=== PATIENT | male | born 1935 | race Caucasian/White ===

== ENCOUNTER 2016-03-04 09:39 | Emergency (ER) | payer MEDICARE ==
[2016-03-04] MEDS ORDERED: Albuterol Sulfate 2.5 mg/3 ml Neb ONE (09:46)
[2016-03-04] MEDS ORDERED: Nitroglycerin 2% Ointment 1 INCH/1 GM Packet ONE (09:53)
[2016-03-04] MEDS ORDERED: methylPREDNISolone Sod Succ/PF 125 MG/2 ML VIAL ONE (10:01)
[2016-03-04 10:12] LABS: #Basophils 0.1 thou/uL (0.0-0.2); #Eosinphils 0.3 thou/uL (0.0-0.7); #Lymphocytes 1.8 thou/uL (1.20-3.40); #Monocytes 0.7 thou/uL (0.11-0.59); #Neutrophils 3.6 thou/uL (1.40-6.50); %Basophils 1.1 % (0.0-1.0); %Eosinophils 4.8 % (0.0-10.0); %Monocytes 10.5 % (0.0-10.0); Hematocrit 47.7 % (42.0-52.0); Mean Platelet Volume 6.4 fL (7.4-10.4); Red Blood Cell (RBC) Count 5.26 mill/uL (4.70-6.10); White Blood Cell (WBC) Count 6.5 thou/uL (4.8-10.8)
[2016-03-04] MEDS ORDERED: Enoxaparin Sodium 100 MG/ML SYRINGE ONE (10:20)
[2016-03-04 10:24] LABS: ALT (SGPT) 29 U/L (0-55); AST (SGOT) 23 U/L (5-34); Alkaline Phosphatase 51 U/L (40-150); Anion Gap 12 mmol/L (10-20); BUN (Urea Nitrogen) 15 mg/dL (8.4-25.7); Bilirubin, Total 0.8 mg/dL (0.2-1.2); Calc. Creatinine Clearance 0 mL/min (70-130); Calcium 9.4 mg/dL (7.8-10.44); Carbon Dioxide 23 mmol/L (23-31); Chloride 111 mmol/L (98-107); Estimated GFR-MDRD 86; Globulin 2.7 g/dL (2.4-3.5); Protein, Total 6.8 g/dL (5.8-8.1)
[2016-03-04 10:26] LABS: Troponin I 0.049 ng/mL (< 0.028)
--- NOTE | 2016-03-04 11:29 | PICIS ---
[facility] EMERGENCY RECORD COMMUNICATIONS (10:54 JPIP) COMMUNICATIONS: Physician, contacted/paged at [phone], Reason for notification transfer, Dr Lyman accepts. TRIAGE (FriMar 04, 2016 09:44 SFER) TRIAGE NOTES: patient presents with shortness of breath and difficulty breathing that started last night. has taken a few breathing treatments but last one was last night. (FriMar 04, 2016 09:44 SFER) PATIENT: NAME: Irineo Mayberry, AGE: 80, GENDER: male, : Fri1935, TIME OF GREET: FriMar 04, 2016 09:39, PREFERRED LANGUAGE: Romansh, ETHNICITY: Not or , ECODE BILLING MAP: [facility], SSN: [id number], Zip Code: [address], KG WEIGHT: 77.11, PHONE: , , , PERSON ID: [id number], PAYMENT: X Medicare. (FriMar 04, 2016 09:44 SFER) COMPLAINT: Shortness of Breath. (FriMar 04, 2016 09:44 SFER) ADMISSION: URGENCY: 2 Emergent, ADMISSION SOURCE: Home, TRANSPORT: CAR, BED: ER -01. (FriMar 04, 2016 09:44 SFER) TRIAGE SCREENING: Patient denies suicidal ideation, Patient denies presence of domestic violence. (09:53 SFER) TREATMENTS IN PROGRESS: Treatments given Prehospital: home meds. (09:53 SFER) PROVIDERS: TRIAGE NURSE: Linda Iraheta RN. (FriMar 04, 2016 09:44 SFER) PREVIOUS VISIT ALLERGIES: No Known Drug Allergy, No Known Food Allergy, No Known Latex Allergy. (FriMar 04, 2016 09:44 SFER) No Known Drug Allergy, No Known Food Allergy, No Known Latex Allergy. (09:53 SFER) KNOWN ALLERGIES adhesive (Unconfirmed) No Known Drug Allergies No Known Drug Allergy (Unconfirmed) No Known Food Allergy (Unconfirmed) No Known Latex Allergy (Unconfirmed) CURRENT MEDICATIONS isosorbide mononitrate: TABLET, EXTENDED RELEASE 24 HR : Strength - 30 mg : ORAL Patient Dose: 30 mg Oral once a day. (10:44 SFER) : TABLET : Strength - 27 mg iron-1 mg : ORAL Patient Dose: 40 mg Oral once a day. (10:45 SFER) Ventolin HFA: HFA AEROSOL WITH ADAPTER (GRAM) : Strength - 90 mcg : INHALATION Patient Dose: 1 puff(s) Oral As Needed. (10:46 SFER) ipratropium bromide: AEROSOL, SPRAY (ML) : Strength - 21 mcg : NASAL Patient Dose: 21 mcg Oral 4 times a day. (10:46 SFER) &a-1R&a+25V*p+0X*x0073E*c202B*c15G*c2P*p-0X&a-25V&a+1R Name: Irineo Mayberry : 1935 M80 MedRec: [id number] AcctNum: [id number] Prepared: FriMar 04, 2016 11:24 by Interface Page 1 of 14 pMD [facility] EMERGENCY RECORD VITAL SIGNS VITAL SIGNS: BP: 201/110, Pulse: 87, Resp: 26 (Mild Distress), Pain: 5, O2 sat: 93 on Room Air, Time: 03/04/2016 09:50. (09:50 SFER) O2 sat: 96 on 2L Oxygen, Time: 03/04/2016 09:54. (09:54 SFER) Temp: 97.7 (Oral), Time: 03/04/2016 09:55. (09:55 SFER) BP: 147/107, Pulse: 91, Resp: 19, O2 sat: 98 on 2L Oxygen, Time: 03/04/2016 09:55. (09:55 AHOO) BP: 140/85, Pulse: 70, Resp: 19, O2 sat: 97 on 2L Oxygen, Time: 03/04/2016 09:57. (09:57 AHOO) BP: 130/97, Pulse: 81, Resp: 18, O2 sat: 97 on 2L Oxygen, Time: 03/04/2016 10:00. (10:00 AHOO) BP: 109/68, Pulse: 80, Resp: 15, Pain: 0, O2 sat: 96 on 2L Oxygen, Time: 03/04/2016 10:10. (10:10 AHOO) BP: 129/64, Pulse: 72, Resp: 19, Temp: 98.1 (Oral), Pain: 0, O2 sat: 92 on 2L Oxygen, Time: 03/04/2016 11:13. (11:13 HASA) BP: 136/69, Pulse: 72, Resp: 16, O2 sat: 93 on 2L Oxygen, Time: 03/04/2016 11:00. (11:00 HASA) BP: 127/78, Pulse: 69, Resp: 16, O2 sat: 92 on 2L Oxygen, Time: 03/04/2016 10:50. (10:50 HASA) BP: 125/76, Pulse: 70, O2 sat: 95 on 2L Oxygen, Time: 03/04/2016 10:40. (10:40 HASA) BP: 126/70, Pulse: 57, Resp: 19, O2 sat: 93 on 2L Oxygen, Time: 03/04/2016 10:30. (10:30 HASA) BP: 135/77, Pulse: 77, Resp: 14, O2 sat: 96 on 2L Oxygen, Time: 03/04/2016 10:15. (10:15 HASA) NURSING ASSESSMENT: CARDIOVASCULAR (10:03 ER) CONSTITUTIONAL: Patient arrives ambulatory, Gait steady, History obtained from patient, Patient appears, in respiratory distress, Patient cooperative, Patient alert, Oriented to person, place and time, Skin warm, Skin dry, Skin, flushed in color, Mucous membranes pink, Mucous membranes, dry, Patient complains of shortness of breath, patient presents with shortness of breath that started a few days ago and has progressively gotten worse since last night, patient states he is becoming more short of breath with simple tasks such as feeding horses. patient ambulatory to stretcher at time of arrival. CARDIOVASCULAR: Cardiovascular assessment findings include heart rate normal, Heart rhythm, atrial fibrillation with controlled ventricular response, with Infrequent premature ventricular contractions, Heart sounds normal, Left radial pulse +3(easily palpated, considered normal), Right radial pulse +3(easily palpated, considered normal), No associated diaphoresis, Associated with dyspnea, with exertion, no associated dizziness, no associated edema, no associated palpitations, no associated paresthesias. RESPIRATORY/CHEST: Lungs auscultated, Breath sounds diminished, to bilateral upper lobes, to the &a-1R&a+25V*p+0X*u4394T*c202B*c15G*c2P*p-0X&a-25V&a+1R Name: Irineo Mayberry : 1935 M80 MedRec: [id number] AcctNum: [id number] Prepared: FriMar 04, 2016 11:24 by Interface Page 2 of 14 pMD [facility] EMERGENCY RECORD right middle lobe, to bilateral lower lobes, Respiratory assessment findings include respiratory effort, tachypneic, dyspneic, Converses, in short phrases, Neck and chest exam findings include trachea midline, Chest expansion equal, Chest movement symmetrical, Signs of distress, in mild distress, no retractions noted, Associated with cough, loose, productive of, clear sputum. SAFETY: Side rails up, Cart/Stretcher in lowest position, Family at bedside, Call light within reach, Hospital ID band on. NURSING ASSESSMENT: FALL RISK (10:06 SFER) FALL RISK: Fall risk assessment findings include: no history of falls (0), No bed rest greater than 2 days (0), No use of level of consciousness altering agents with mentation or cognitive changes (0), No change in blood pressure (0), No sensory deficits (0), Impaired mobility (3), No neurologic diagnosis (0), No elimination problems (0), No confusion (0), Total score 3. HENDRICH II FALL RISK: Hendrich II Fall Risk assessment findings include patient not confused, disoriented or impulsive, not symptomatic or depressed, no altered elimination, dizziness or vertigo(1), male(1), no antiepileptics (anticonvulsants) administered, no Benzodiazepines administered, Total score 2, Score greater than 5. Patient is at high risk for fall. Fall risk precautions initiated. 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 SAFETY: Side rails up, Cart/Stretcher in lowest position, Family at bedside, Call light within reach, Hospital ID band on. NURSING PROCEDURE: BEDSIDE RADIOLOGY (10:03 SFER) BEDSIDE RADIOLOGY: Portable chest x-ray performed. SAFETY: Side rails up, Cart/Stretcher in lowest position, Family at bedside, Call light within reach, Hospital ID band on. NURSING PROCEDURE: BEDSIDE SIRS TESTING (10:16 SFER) SCORES: Heart Rate 55-109 (0), Temp range 96.8-101.1 (0), respiratory rate 12-24 (0), Latest WBC 3-14.9 (0), Mental Status altered: no (0). NURSING PROCEDURE: LUMP MAKER (09:45 SFER) &a-1R&a+25V*p+0X*q8448B*c202B*c15G*c2P*p-0X&a-25V&a+1R Name: Irineo Mayberry : 1935 M80 MedRec: [id number] AcctNum: [id number] Prepared: FriMar 04, 2016 11:24 by Interface Page 3 of 14 [facility] EMERGENCY RECORD LUMP MAKER: Patient placed on kitchen stewardess, Patient placed on non-invasive blood pressure monitor, Patient placed on continuous pulse oximetry. SAFETY: Side rails up, Cart/Stretcher in lowest position, Family at bedside, Call light within reach, Hospital ID band on. NURSING PROCEDURE: EKG CHART EK lead EKG performed on the left chest, done by MICHELINE Mckeon, first EKG. (09:46 SFER) 12 lead EKG performed on the left chest, done by MICHELINE Mckeon, first EKG. (10:09 SFER) SAFETY: Side rails up, Cart/Stretcher in lowest position, Family at bedside, Call light within reach, Hospital ID band on. (09:46 SFER) Side rails up, Cart/Stretcher in lowest position, Family at bedside, Call light within reach, Hospital ID band on. (10:09 SFER) NURSING PROCEDURE: IV (09:50 SFER) IV SITE 1: IV established, to the right antecubital, using an 18 gauge catheter, in one attempt, Flushed with normal saline (mls): 10 mL, Labs drawn at time of placement, labeled in the presence of the patient and sent to lab, Notes: started by MICHELINE Carrasco. SAFETY: Side rails up, Cart/Stretcher in lowest position, Family at bedside, Call light within reach, Hospital ID band on. NURSING PROCEDURE: OXYGEN THERAPY (09:46 SFER) OXYGEN THERAPY: Oxygen therapy indicated for desaturation, 2L oxygen given, via nasal cannula applied, Applied by MICHELINE Carrasco, via nasal cannula. FOLLOW-UP: After procedure, oxygen saturation 96%. SAFETY: Side rails up, Cart/Stretcher in lowest position, Family at bedside, Call light within reach, Hospital ID band on. NURSING PROCEDURE: RESPIRATORY INTERVENTIONS (09:48 AHOO) PATIENT IDENTIFIER: Patient actively involved in identification process, Patient's identity verified by patient stating name, Patient's identity verified by patient stating date, Patient's identity verified by hospital ID bracelet, Patient's identity verified by family member. RESPIRATORY INTERVENTIONS: Respiratory interventions indicated for wheezing, Pre-intervention oxygen saturation 93%, by adult/pediatric oxisensor, single pulse oximetry reading. ORDER DETAILS Order Name: B type Natriuretic Peptide, Status: Active, Time: 09:52 03/04/2016, User: MIKEL, - Ordered for: DO Bocanegra Joseph, - Entered by: DO Bocanegra Joseph - [facility] Mar 04, 2016 09:52, - Quantity: 1, &a-1R&a+25V*p+0X*j6554F*c202B*c15G*c2P*p-0X&a-25V&a+1R Name: Irineo Mayberry : 1935 M80 MedRec: [id number] AcctNum: [id number] Prepared: FriMar 04, 2016 11:24 by Interface Page 4 of 14 D [facility] EMERGENCY RECORD Order Name: LUMP MAKER ED, Status: Done, Time: 09:54 03/04/2016, User: LARRY, - Ordered for: DO Bocanegra Joseph, - Entered by: DO Bocanegra Joseph - [facility] Mar 04, 2016 09:52, - Quantity: 1, Order Name: Cardiac Profile w/CKMB & Troponin - I, Status: Active, Time: 09:52 03/04/2016, User: MIKEL, - Ordered for: DO Bocanegra Joseph, - Entered by: DO Bocanegra Joseph - Mon Mar 04, 2016 09:52, - Quantity: 1, Order Name: CBC with Differential, Status: Active, Time: 09:52 03/04/2016, User: MIKEL, - Ordered for: DO Bocanegra Joseph, - Entered by: DO Bocanegra Joseph - Mon Mar 04, 2016 09:52, - Quantity: 1, Order Name: Comprehensive Metabolic Panel, Status: Active, Time: 09:52 03/04/2016, User: MIKEL, - Ordered for: DO Bocanegra Joseph, - Entered by: DO Bocanegra Joseph - FriMar 04, 2016 09:52, - Quantity: 1, Order Name: EKG 12 Lead in Emergency Room, Status: Active, Time: 10:07 03/04/2016, User: MIKEL, - Ordered for: DO Bocanegra Joseph, - Entered by: DO Bocanegra Joseph - Mon Mar 04, 2016 10:07, - Quantity: 1, Order Name: EKG 12 Lead in Emergency Room, Status: Active, Time: 09:52 03/04/2016, User: MIKEL, - Ordered for: DO Bocanegra Joseph, - Entered by: DO Bocanegra Joseph - FriMar 04, 2016 09:52, - Quantity: 1, Order Name: ERRT * Smal Vol Neb Initial Trmt, Status: Active, Time: 10:07 03/04/2016, User: MIKEL, - Ordered for: DO Bocanegra Joseph, - Entered by: DO Bocanegra Joseph - FriMar 04, 2016 10:07, - Quantity: 1, Order Name: ERRT Small Vol Neb Sub Trmt, Status: Active, Time: 10:07 03/04/2016, User: MIKEL, - Ordered for: DO Bocanegra Joseph, - Entered by: DO Bocanegra Joseph - Mon Mar 04, 2016 10:07, - Quantity: 1, Order Name: ERRT Oxygen Usage ER, Status: Active, Time: 09:52 03/04/2016, User: MIKEL, - Ordered for: DO Bocanegra Joseph, - Entered by: DO Bocanegra Joseph - Mon Mar 04, 2016 09:52, - Quantity: 1, Order Name: ERRT Pulse Oximeter ER, Status: Active, Time: 09:52 03/04/2016, User: MIKEL, - Ordered for: DO Bocanegra Joseph, - Entered by: DO Bocanegra Joseph - FriMar 04, 2016 09:52, - Quantity: 1, &a-1R&a+25V*p+0X*q0638H*c202B*c15G*c2P*p-0X&a-25V&a+1R Name: Irineo Mayberry : 1935 M80 MedRec: [id number] AcctNum: [id number] Prepared: FriMar 04, 2016 11:24 by Interface Page 5 of 14 pMD [facility] EMERGENCY RECORD Order Name: SALINE LOCK, Status: Done, Time: 09:54 03/04/2016, User: LARRY, - Ordered for: DO Bocanegra Joseph, - Entered by: DO Bocanegra Joseph - FriMar 04, 2016 09:52, - Quantity: 1, Order Name: XR Chest 1 View Portable, Status: Active, Time: 09:52 03/04/2016, User: MIKEL, - Ordered for: DO Bocanegra Joseph, - Entered by: DO Bocanegra Joseph - FriMar 04, 2016 09:52, - Quantity: 1. MEDICATION ADMINISTRATION SUMMARY Drug Name: Lovenox, Dose Ordered: 80 mg, Route: Subcutaneous, Status: Given, Time: 10:23 03/04/2016, Drug Name: Solu-MEDROL injection, Dose Ordered: 125 mg, Route: IV Push, Status: Given, Time: 10:05 03/04/2016, Drug Name: Nitro-Bid transdermal, Dose Ordered: 1 inch, Route: Topical, Status: Given, Time: 09:55 03/04/2016, Drug Name: albuterol sulfate inhalation, Dose Ordered: 3 mL, Route: Nebulize, Status: Given, Time: 09:53 03/04/2016, Drug Name: *aspirin oral, Dose Ordered: 324 mg, Route: Oral, Status: Given, Time: 09:52 03/04/2016, Drug Name: DuoNeb, Dose Ordered: 3 mL, Route: Nebulize, Status: Given, Time: 09:48 03/04/2016, *Additional information available in notes, Detailed record available in Medication Service section. MEDICATION SERVICE albuterol sulfate inhalation: Order: albuterol sulfate inhalation (albuterol sulfate) - Dose: 3 mL : Nebulize Schedule: Now Ordered by: Isidoro Bocanegra DO Entered by: Isidoro Bocanerga DO FriMar 04, 2016 09:53 , Acknowledged by: Ginger Peters LVN FriMar 04, 2016 10:00 Documented as given by: Ginger Peters LVN FriMar 04, 2016 09:53 Patient, Medication, Dose, Route and Time verified prior to administration. Amount given: 3ml, Correct patient, time, route, dose and medication confirmed prior to administration, Patient advised of actions and side-effects prior to administration, Allergies confirmed and medications reviewed prior to administration, Patient in position of comfort, Side rails up, Cart in lowest position, Family at bedside. aspirin oral: Order: aspirin oral (aspirin) - Dose: 324 mg : Oral Notes: 4 X 81mg TABLETS AT ONCE Ordered by: Isidoro Bocanegra DO Entered by: Isidoro Bocanegra DO FriMar 04, 2016 09:53 , Acknowledged by: Ginger Peters LVN FriMar 04, 2016 10:00 Documented as given by: Ginger Peters LVN FriMar 04, 2016 09:52 Patient, Medication, Dose, Route and Time verified prior to &a-1R&a+25V*p+0X*u0551J*c202B*c15G*c2P*p-0X&a-25V&a+1R Name: Irineo Mayberry : 1935 M80 MedRec: [id number] AcctNum: [id number] Prepared: FriMar 04, 2016 11:24 by Interface Page 6 of 14 pMD [facility] EMERGENCY RECORD administration. Amount given: 324mg, Correct patient, time, route, dose and medication confirmed prior to administration, Patient advised of actions and side-effects prior to administration, Allergies confirmed and medications reviewed prior to administration, Patient in position of comfort, Side rails up, Cart in lowest position, Family at bedside. DuoNeb: Order: DuoNeb (ipratropium bromide/albuterol sulfate) - Dose: 3 mL : Nebulize Schedule: Now Ordered by: Isidoro Bocanegra DO Entered by: Isidoro Bocanegra DO FriMar 04, 2016 09:53 , Acknowledged by: Ginger Peters LVN FriMar 04, 2016 10:00 Documented as given by: Ginger Peters LVN FriMar 04, 2016 09:48 Patient, Medication, Dose, Route and Time verified prior to administration. Amount given: 30ml, Correct patient, time, route, dose and medication confirmed prior to administration, Patient advised of actions and side-effects prior to administration, Allergies confirmed and medications reviewed prior to administration, Patient in position of comfort, Side rails up, Cart in lowest position, Family at bedside. Lovenox: Order: Lovenox (enoxaparin sodium) - Dose: 80 mg : Subcutaneous Schedule: Now Ordered by: Isidoro Bocanegra DO Entered by: Isidoro Bocanegra DO FriMar 04, 2016 10:19 , Acknowledged by: Ginger Peters LVN FriMar 04, 2016 10:20, Co-signed by: Linda Iraheta RN FriMar 04, 2016 10:22 Documented as given by: Ginger Peters LVN FriMar 04, 2016 10:23 Patient, Medication, Dose, Route and Time verified prior to administration. Amount given: 80MG, Medication administered to right abdomen, Advised not to ambulate without assistance, Patient in position of comfort, Side rails up, Cart in lowest position, Family at bedside. Nitro-Bid transdermal: Order: Nitro-Bid transdermal (nitroglycerin) - Dose: 1 inch : Topical Schedule: Now Ordered by: Isidoro Bocanegra DO Entered by: Isidoro Bocanegra DO FriMar 04, 2016 09:53 , Acknowledged by: Ginger Peters LVN FriMar 04, 2016 10:00 Documented as given by: Ginger Peters LVN FriMar 04, 2016 09:55 Patient, Medication, Dose, Route and Time verified prior to administration. Amount given: 1 inch, Skin cleansed prior to administration, Correct patient, time, route, dose and medication confirmed prior to administration, Patient advised of actions and side-effects prior to administration, Allergies confirmed and medications reviewed prior to administration, Advised not to ambulate without assistance, Patient in position of comfort, Side rails up, Cart in lowest position, &a-1R&a+25V*p+0X*d0371H*c202B*c15G*c2P*p-0X&a-25V&a+1R Name: Irineo Mayberry : 1935 M80 MedRec: [id number] AcctNum: [id number] Prepared: FriMar 04, 2016 11:24 by Interface Page 7 of 14 pMD [facility] EMERGENCY RECORD Family at bedside, PT BP WAS 147/107. Solu-MEDROL injection: Order: Solu-MEDROL injection (methylprednisolone sod succ) - Dose: 125 mg : IV Push Ordered by: Isidoro Bocanegra DO Entered by: Isidoro Bocanegra DO FriMar 04, 2016 09:55 , Acknowledged by: Ginger Peters LVN FriMar 04, 2016 10:00 Documented as given by: Ginger Peters LVN FriMar 04, 2016 10:05 Patient, Medication, Dose, Route and Time verified prior to administration. Amount given: 125MG, IV SITE #1 IVP, Awake and alert- acceptable, Catheter placement confirmed via flush prior to administration, IV site without signs or symptoms of infiltration during medication administration, No swelling during administration, No drainage during administration, IV flushed after administration, Correct patient, time, route, dose and medication confirmed prior to administration, Patient advised of actions and side-effects prior to administration, Allergies confirmed and medications reviewed prior to administration, Administered by KELL HAMM RN, Patient in position of comfort, Side rails up, Cart in lowest position, Family at bedside. HPI SHORTNESS OF BREATH CHIEF COMPLAINT: Patient presents for evaluation of shortness of breath. (10:01 JPIP) HISTORIAN: History provided by patient, History provided by patient's spouse. (10:01 JPIP) LOCATION: Symptoms are generalized. (10:01 JPIP) QUALITY: Symptoms described as tightness, Symptoms described as wheezing. (10:01 JPIP) SEVERITY: Current severity of pain rated as 5/10. (10:01 JPIP) TIME COURSE: Sudden onset of symptoms, Date and time of onset was 4-5, days ago, Symptoms are worsening, are constant. (10:01 JPIP) ASSOCIATED WITH: No associated chills, Associated with cough, Associated with chest pain, Associated with dyspnea on exertion, No associated fever, No associated nausea, Associated with palpitations, No associated peripheral edema, Associated with pleuritic chest pain, No associated upper respiratory infection, No associated vomiting, Associated with wheezing. (10:01 JPIP) EXACERBATED BY: Patient's condition exacerbated by exercise. (10:01 JPIP) RELIEVED BY: Patient's condition relieved by nothing. (10:01 JPIP) RISK FACTORS: Coronary artery disease risk factors, include known coronary artery disease. (10:01 JPIP) CRITICAL CARE: Time spent providing critical care to patient was 30-74 minutes, 30 minutes. (10:56 JPIP) ROS (10:02 JPIP) CONSTITUTIONAL: Historian reports chills, reports fatigue, reports fever. EYES: Historian denies eye redness. &a-1R&a+25V*p+0X*p1600O*c202B*c15G*c2P*p-0X&a-25V&a+1R Name: Irineo Mayberry : 1935 M80 MedRec: [id number] AcctNum: [id number] Prepared: FriMar 04, 2016 11:24 by Interface Page 8 of 14 pMD [facility] EMERGENCY RECORD ENT: Historian denies dysphagia, denies rhinorrhea, denies sinus pain, denies sore throat. CARDIOVASCULAR: Historian reports chest pain, pleuritic, Historian reports dyspnea on exertion, denies edema, reports exercise intolerance, reports palpitations. RESPIRATORY: Historian reports cough, reports shortness of breath, reports sputum. described as thin, clear, Historian reports wheezing. GI: Historian denies nausea, denies vomiting. GENITOURINARY MALE: Historian denies incontinence. MUSCULOSKELETAL: Negative musculoskeletal review of systems. NEUROLOGIC: Historian denies confusion, reports dizziness, denies lethargy, denies mental status changes. NOTES: All systems reviewed, negative except as described above. PAST MEDICAL HISTORY (09:53 SFER) MEDICAL HISTORY: Notes: COPD and syncopal episodes, Flu vaccine not up to date, Tetanus not up to date, Pneumococcal vaccine not up to date. 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 PSYCHIATRIC HISTORY: No previous psychiatric history, no history of suicidal ideations, No history of suicide attempts, No history of hallucinations, No history of homicidal ideations, No history of violence towards others. SOCIAL HISTORY: Patient denies alcohol use, Patient denies drug use, Patient currently uses tobacco, Smokes cigars, Light tobacco smoker, Patient has smoked for 30 years, Patient smokes ocassionally. PHYSICAL EXAM (10:03 JPIP) CONSTITUTIONAL: Vital Signs Reviewed, Patient afebrile, Pulse normal, Blood pressure, hypertensive, Respiratory rate, increased, Normal pulse oximetry, Patient appears, uncomfortable, Patient alert and oriented to person, place and time, Nursing notes reviewed. HEAD: Head exam included findings of head atraumatic, normocephalic. EYES: Eye exam included findings of, extropion of left lid, Conjunctiva normal, Sclera normal, no periorbital ecchymosis, no periorbital edema, no periorbital erythema. ENT: Pharynx exam normal, Mouth exam normal, mucous membranes moist. NECK: Neck exam included findings of normal range of motion, Trachea midline, no carotid bruits, no jugular venous distention, no cervical adenopathy, no tenderness. RESPIRATORY CHEST: Respiratory exam included findings of, mild respiratory distress, Breath sounds not clear, Wheezing present, diffusely, Rales present, to bilateral upper lobes, to &a-1R&a+25V*p+0X*z6721Q*c202B*c15G*c2P*p-0X&a-25V&a+1R Name: Irineo Mayberry : 1935 M80 MedRec: [id number] AcctNum: [id number] Prepared: FriMar 04, 2016 11:24 by Interface Page 9 of 14 pMD [facility] EMERGENCY RECORD bilateral lower lobes, No rhonchi, Breath sounds not absent, Breath sounds diminished, to bilateral upper lobes, to bilateral lower lobes. CARDIOVASCULAR: Cardiovascular exam included findings of heart rate regular rate and rhythm, Heart sounds normal, no murmurs, no rub. ABDOMEN MALE: Abdominal exam included findings of abdomen nontender, Liver normal, Spleen normal. UPPER EXTREMITY: Upper extremity exam included findings of inspection normal, Range of motion normal. LOWER EXTREMITY: Lower extremity exam included findings of inspection normal, Range of motion normal, no edema. NEURO: [place] coma scale 15, Neuro exam findings include patient oriented to person, place and time, Speech normal, no focal motor deficits. SKIN: Skin exam included findings of skin warm, dry, and normal in color. LYMPHATIC: Lymphatic exam included findings of cervical nodes normal, Submandibular normal. PSYCHIATRIC: Psychiatric exam included findings of patient oriented to person place and time, Affect, anxious. LAB INTERPRETATION (10:52 JPIP) INTERPRETATION: I reviewed the lab results, All labs normal except as noted below, CBC normal, Chemistry abnormal, Chloride elevated, Cardiac enzymes abnormal, CK-MB normal, Troponin elevated, BNP elevated, Liver functions normal. EVENTS TRANSFER: Triage to Emergency Emergency Room -01. (FriMar 04, 2016 09:44 SFER) Removed from Emergency Emergency Room -01. (11:17 HASA) RADIOLOGYINTERPRETATION (10:09 JPIP) CHEST: Films of the chest show, interstitial infiltrate, no pneumothorax, no hemothorax, no pleural effusion, cardiomegaly, chronic obstructive pulmonary disease. DRAG CAR RACER: Preliminary review of x-rays by, ED Physician. EKG INTERPRETATION MONITOR STRIP: creative guru strip interpreted by Emergency Department Physician, Monitor strip shows atrial flutter, with unifocal premature ventricular complexes, with infrequent premature ventricular complexes. (10:11 JPIP) 12 LEAD EKG INTERPRETATION: 12 lead EKG interpreted by Emergency Department Physician at time of study, 12 lead EKG shows, atrial fibrillation with controlled ventricular response, &a-1R&a+25V*p+0X*e6019H*c202B*c15G*c2P*p-0X&a-25V&a+1R Name: Irineo Mayberry : 1935 M80 MedRec: [id number] AcctNum: [id number] Prepared: FriMar 04, 2016 11:24 by Interface Page 10 of 14 pMD [facility] EMERGENCY RECORD Rate (beats per minute): 84, Conduction with, nonspecific intraventricular conduction delay, ST, T waves, Jackson, left, Clinical impression:, dysrhythmia - atrial. (10:11 JPIP) 12 lead EKG interpreted by Emergency Department Physician at time of study, 12 lead EKG shows, atrial fibrillation with controlled ventricular response, Rate (beats per minute): 77, with no ectopics, Conduction with, nonspecific intraventricular conduction delay, ST segments normal, T waves, flattened, Areas affected: inferior leads, Jackson, left, Clinical impression:, dysrhythmia - atrial. (10:12 JPIP) O2SAT INTERPRETATION (10:20 JPIP) O2SAT: Continuous pulse oximetry, Oxygen saturation 93%, on room air, Oxygen saturation interpretation: Low normal, Intervention required: patient observed, Intervention required: Oxygen administration, Intervention required: aerosol treatment. Continuous pulse oximetry, Oxygen saturation 95%, on 2L, via nasal cannula, Oxygen saturation interpretation: Normal, Intervention required: patient observed, Intervention required: Oxygen administration, after nebs and on O2. DOCTOR NOTES RE-EVALUATION: Routine re-evaluation, after administration of bronchodilator nebulizer treatments, The patient's condition has improved, rhonchi have increased, better exchange. patient is in less distess. (09:55 JPIP) Routine re-evaluation, after administration of nitroglycerin, The patient's condition has improved, BP 130/97. (10:07 JPIP) Routine re-evaluation, after administration of bronchodilator nebulizer treatments, Routine re-evaluation, after administration of nitroglycerin, The patient's condition has improved, 109/68, breathing better feels better. (10:17 JPIP) TEXT: Discussed findings with patient and spouse, New onset Afib, and COPD exacerbation. Will transfer to [facility] for further evaluation and treatment. (10:17 JPIP) PROBLEM LIST No recorded problems DIAGNOSIS (10:56 JPIP) FINAL: PRIMARY: COPD WITH ACUTE EXACERBATION, ADDITIONAL: atrial fibrillation - new onset, CHF, RO AMI. DISPOSITION PATIENT: Disposition Type: Transfer, Disposition: Transfer to [facility], Disposition Transport: Ambulance, Condition: Improved. (10:56 JPIP) Patient left the department. (11:17 HASA) &a-1R&a+25V*p+0X*d9807U*c202B*c15G*c2P*p-0X&a-25V&a+1R Name: Irineo Mayberry : 1935 M80 MedRec: [id number] AcctNum: [id number] Prepared: FriMar 04, 2016 11:24 by Interface Page 11 of 14 pMD [facility] EMERGENCY RECORD PRESCRIPTION No recorded prescriptions IMAGING *EKG: Image captured from scanner. (09:55 SFER) MONITOR STRIPS: Image captured from scanner. (10:10 AHOO) EKG #2: Image captured from scanner. (10:34 AHOO) *MEMORANDUM OF TRANSFER: Image captured from scanner. (10:57 SFER) PHYSICIAN CERTIFICATION STATEMENT: Image captured from scanner. (10:57 SFER) CONSENTS: Image captured from scanner. (11:00 SFER) RESULTS LABORATORY: CBC with Differential Collection DT: FriMar 04, 2016 10:10, White Blood Cell (WBC) Count 6.5 thou/uL, Range (4.8-10.8), Red Blood Cell (RBC) Count 5.26 mill/uL, Range (4.70-6.10), Hemoglobin 15.1 g/dL, Range (14.0-18.0), Hematocrit 47.7 %, Range (42.0-52.0), Mean Corpuscular Volume 90.6 fl, Range (80.0-94.0), Mean Corpuscular Hemoglobin 28.6 pg, Range (27.0-31.0), *Mean Corpuscular HGB CONC 31.6 - L g/dL, Range (32.0-36.0), RBC Distribution Width 12.9 %, Range (11.5-14.5), Platelet Count 189 thou/uL, Range (130-400), *Mean Platelet Volume 6.4 - L fL, Range (7.4-10.4), %Neutrophils 55.9 %, Range (42.0-75.0), %Lymphocytes 27.7 %, Range (21.0-51.0), *%Monocytes 10.5 - H %, Range (0.0-10.0), %Eosinophils 4.8 %, Range (0.0-10.0), *%Basophils 1.1 - H %, Range (0.0-1.0), #Neutrophils 3.6 thou/uL, Range (1.40-6.50), #Lymphocytes 1.8 thou/uL, Range (1.20-3.40), *#Monocytes 0.7 - H thou/uL, Range (0.11-0.59), #Eosinphils 0.3 thou/uL, Range (0.0-0.7), #Basophils 0.1 thou/uL, Range (0.0-0.2). (10:16 JPIP) B type Natriuretic Peptide Collection DT: FriMar 04, 2016 10:10, *B type Natriuretic Peptide 306.1 - H pg/mL, Range (0-100). (10:30 JPIP) Cardiac Profile w/CKMB & TropI Collection DT: FriMar 04, 2016 10:10, CKMB 4.8 ng/mL, Range (0-6.6), *Troponin I 0.049 - H ng/mL, Range (< 0.028), Reference Range , 0.00 - 0.028 ng/mL Negative 0.029 - 0.29 ng/mL , Indeterminate Greater or Equal to 0.3 ng/mL Strongly suggests CO , . (10:30 [facility]) Comprehensive Metabolic Panel Collection DT: FriMar 04, 2016 10:10, &a-1R&a+25V*p+0X*e0055N*c202B*c15G*c2P*p-0X&a-25V&a+1R Name: Irineo Mayberry : 1935 M80 MedRec: [id number] AcctNum: [id number] Prepared: FriMar 04, 2016 11:24 by Interface Page 12 of 14 pMD [facility] EMERGENCY RECORD Sodium 142 mmol/L, Range (136-145), Potassium 4.0 mmol/L, Range (3.5-5.1), *Chloride 111 - H mmol/L, Range (98-107), Carbon Dioxide 23 mmol/L, Range (23-31), Anion Gap 12 mmol/L, Range (10-20), BUN (Urea Nitrogen) 15 mg/dL, Range (8.4-25.7), Creatinine 0.85 mg/dL, Range (0.7-1.3), Estimated GFR-MDRD 86 , Reference Range for Estimated GFR: Greater than 90, mL/min/1.73 m2 NOTE: The MDRD equation has not been validated for use, with the elderly (over 70 years of age), women, patients with, serious comorbid condition or persons with extremes of body size, muscle, mass, or nutritional status. , Glucose 109 mg/dL, Range (83-110), Calcium 9.4 mg/dL, Range (7.8-10.44), Bilirubin, Total 0.8 mg/dL, Range (0.2-1.2), Protein, Total 6.8 g/dL, Range (5.8-8.1), NOTE: Plasma values are generally 0.3 to 0.5 g/dL higher than serum values, due to the presence of fibrinogen. , Albumin 4.1 g/dL, Range (3.4-4.8), Globulin 2.7 g/dL, Range (2.4-3.5), Alb/Glob Ratio 1.5 g/dL, Range (1.2-2.2), Alkaline Phosphatase 51 U/L, Range (40-150), AST (SGOT) 23 U/L, Range (5-34), ALT (SGPT) 29 U/L, Range (0-55). (10:30 JPIP) B type Natriuretic Peptide Collection DT: FriMar 04, 2016 10:10, *B type Natriuretic Peptide 306.1 - H pg/mL, Range (0-100). (10:30 JPIP) Cardiac Profile w/CKMB & TropI Collection DT: FriMar 04, 2016 10:10, CKMB 4.8 ng/mL, Range (0-6.6), *Troponin I 0.049 - H ng/mL, Range (< 0.028), Reference Range , 0.00 - 0.028 ng/mL Negative 0.029 - 0.29 ng/mL , Indeterminate Greater or Equal to 0.3 ng/mL Strongly suggests CO , . (10:30 JPIP) Comprehensive Metabolic Panel Collection DT: FriMar 04, 2016 10:10, Sodium 142 mmol/L, Range (136-145), Potassium 4.0 mmol/L, Range (3.5-5.1), *Chloride 111 - H mmol/L, Range (98-107), Carbon Dioxide 23 mmol/L, Range (23-31), Anion Gap 12 mmol/L, Range (10-20), BUN (Urea Nitrogen) 15 mg/dL, Range (8.4-25.7), Creatinine 0.85 mg/dL, Range (0.7-1.3), Estimated GFR-MDRD 86 , Reference Range for Estimated GFR: Greater than 90, mL/min/1.73 m2 &a-1R&a+25V*p+0X*i3122N*c202B*c15G*c2P*p-0X&a-25V&a+1R Name: Irineo Mayberry : 1935 80 MedRec: [id number] AcctNum: [id number] Prepared: FriMar 04, 2016 11:24 by Interface Page 13 of 14 pMD [facility] EMERGENCY RECORD NOTE: The MDRD equation has not been validated for use, with the elderly (over 70 years of age), women, patients with, serious comorbid condition or persons with extremes of body size, muscle, mass, or nutritional status. , Glucose 109 mg/dL, Range (83-110), Calcium 9.4 mg/dL, Range (7.8-10.44), Bilirubin, Total 0.8 mg/dL, Range (0.2-1.2), Protein, Total 6.8 g/dL, Range (5.8-8.1), NOTE: Plasma values are generally 0.3 to 0.5 g/dL higher than serum values, due to the presence of fibrinogen. , Albumin 4.1 g/dL, Range (3.4-4.8), Globulin 2.7 g/dL, Range (2.4-3.5), Alb/Glob Ratio 1.5 g/dL, Range (1.2-2.2), Alkaline Phosphatase 51 U/L, Range (40-150), AST (SGOT) 23 U/L, Range (5-34), ALT (SGPT) 29 U/L, Range (0-55). (10:30 [facility]) Gibbs: AHOO=IVONNE PetersN, June HASA=SERENITY Hamm Hannah JPIP=DO Bocanegra Joseph SFER=MICHELINE Iraheta Sarah &a-1R&a+25V*p+0X*h9540L*c202B*c15G*c2P*p-0X&a-25V&a+1R Name: Irineo Mayberry : 1935 80 MedRec: [id number] AcctNum: [id number] Prepared: Shilo Mar 04, 2016 11:24 by Interface Page 14 of 14 pMD MEL
--- NOTE | 2016-03-04 18:26 | RAD ---
PORTABLE CHEST 03/04/2016 COMPARISON: 10/17/2015 FINDINGS The heart is mildly enlarged, but there are no congestive changes in the vessels at t he moment. No pleural effusions are seen. There is perhaps a little increased haziness in the righ t cardiophrenic angle, compared to before, which may or may not be significant. If there were no si gns of pneumonia, I would tend to dismiss the finding or at least follow it up with a PA and lateral chest. Median sternotomy sutures are noted, as usual, from prior surgery. Arteriosclerosis is see n in the aorta. IMPRESSION Cardiomegaly. POS: HOME
== END 2016-03-04 11:15 | disposition short-term general hospital (02) ==
LOC: BURERS 09:39
DX: J44.1 Chronic obstructive pulmonary disease with (acute) exacerbation (principal); I48.91 Unspecified atrial fibrillation; I50.9 Heart failure, unspecified; F17.210 Nicotine dependence, cigarettes, uncomplicated; Z79.899 Other long term (current) drug therapy
CPT/HCPCS: 71010; 80053; 82553; 83880; 84484; 85025; 93005; 94640; 94760; 96372; 96374; J1650; J2930; J7611; J7620

== ENCOUNTER 2016-03-20 08:41 | Outpatient (CLI) | payer MEDICARE ==
[2016-03-20 09:32] LABS: ALT (SGPT) 21 U/L (0-55); AST (SGOT) 20 U/L (5-34); Alkaline Phosphatase 46 U/L (40-150); Bilirubin, Direct 0.3 mg/dL (0.1-0.3); Bilirubin, Total 0.8 mg/dL (0.2-1.2); LDL Cholesterol, Calculated 62 mg/dL; Protein, Total 6.2 g/dL (5.8-8.1)
== END 2016-03-20 08:42 | disposition home or self-care (01) ==
LOC: BURLAB 08:41
PROVIDERS: ATTEND Internal Medicine Cardiovascular Disease
DX: I48.91 Unspecified atrial fibrillation (principal); Z79.899 Other long term (current) drug therapy
CPT/HCPCS: 36415; 80061; 80076

== ENCOUNTER 2016-04-12 10:16 | Outpatient (CLI) | payer MEDICARE ==
--- NOTE | 2016-04-12 13:31 | RAD ---
CHEST 2 VIEWS: DATE: 04/12/16. FINDINGS: Comparison is made with the prior study of 03/04/16 and 10/17/15. The heart is normal in size. There has been a prior CABG. COPD is present. There is a small left pleural effusion today and there appears to be a left lower lobe infiltrate posteriorly. The findin gs are consistent with a small developing pneumonia. The right lung is relatively clear, though the re is some minor accentuation of some of the hilar markings. The trachea is midline. IMPRESSION: Chronic obstructive pulmonary disease with findings suggestive of an early left basilar pneumonia. Findings called to Dr. Gilbert at 1232 on 04/12/16. CODE CR POS: JONES
== END 2016-04-12 10:17 | disposition home or self-care (01) ==
LOC: BURRAD 10:16
PROVIDERS: ATTEND Physician Assistant
DX: J44.1 Chronic obstructive pulmonary disease with (acute) exacerbation (principal); R06.02 Shortness of breath; R05 Cough
CPT/HCPCS: 71020

== ENCOUNTER 2016-06-14 12:06 | Outpatient (CLI) | payer MEDICARE ==
[2016-06-14 13:35] LABS: ALT (SGPT) 26 U/L (0-55); AST (SGOT) 24 U/L (5-34); Albumin 4.3 g/dL (3.4-4.8); Alkaline Phosphatase 42 U/L (40-150); Anion Gap 14 mmol/L (10-20); BUN (Urea Nitrogen) 17 mg/dL (8.4-25.7); Bilirubin, Direct 0.2 mg/dL (0.1-0.3); Bilirubin, Total 0.5 mg/dL (0.2-1.2); Calc. Creatinine Clearance 0 mL/min (70-130); Calcium 9.7 mg/dL (7.8-10.44); Carbon Dioxide 26 mmol/L (23-31); Chloride 108 mmol/L (98-107); Estimated GFR-MDRD 77; Glucose 88 mg/dL (83-110); Potassium 4.1 mmol/L (3.5-5.1); Protein, Total 6.9 g/dL (5.8-8.1); Sodium 144 mmol/L (136-145)
--- NOTE | 2016-06-14 14:35 | RAD ---
PA AND LATERAL CHEST: Date: 06/14/16 INDICATION: Diagnosis code - 550.22. COMPARISON: Prior exam dated 04/12/16. FINDINGS: The examination demonstrates some improvement in the left basilar opacity seen from the prior examin ation. There is some residual subsegmental atelectasis within the left lower lobe. Mild cardiomegaly is stable. Tortuosity of the aorta is similar. Chronic obstructive pulmonary disease is similar. Mu ltilevel spondylosis is similar. IMPRESSION: 1. Improvement in the air space opacity seen within the left lower lobe on the prior examination. T here is some residual linear opacity seen within the left lower lobe which may reflect some residual atelectasis. Continued follow-up is recommended. 2. Stable COPD. POS: JONES
== END 2016-06-14 12:07 | disposition home or self-care (01) ==
LOC: BURRAD 12:06
PROVIDERS: ATTEND Nurse Practitioner Family
DX: I50.22 Chronic systolic (congestive) heart failure (principal); J44.9 Chronic obstructive pulmonary disease, unspecified; I25.10 Atherosclerotic heart disease of native coronary artery without angina pectoris; E78.00 Pure hypercholesterolemia, unspecified
CPT/HCPCS: 36415; 71020; 80048; 80076

== ENCOUNTER 2016-07-31 10:09 | Outpatient (CLI) | payer MEDICARE ==
[2016-07-31 10:53] LABS: Anion Gap 12 mmol/L (10-20); BUN (Urea Nitrogen) 20 mg/dL (8.4-25.7); Calc. Creatinine Clearance 0 mL/min (70-130); Calcium 9.2 mg/dL (7.8-10.44); Carbon Dioxide 24 mmol/L (23-31); Chloride 110 mmol/L (98-107); Estimated GFR-MDRD 79; Glucose 98 mg/dL (83-110); Potassium 4.3 mmol/L (3.5-5.1); Sodium 142 mmol/L (136-145)
== END 2016-07-31 10:10 | disposition home or self-care (01) ==
LOC: BURLAB 10:09
PROVIDERS: ATTEND Internal Medicine Cardiovascular Disease
DX: I50.20 Unspecified systolic (congestive) heart failure (principal)
CPT/HCPCS: 36415; 80048

== ENCOUNTER 2017-10-29 09:06 | Inpatient (IN) | payer MEDICARE ==
[2017-10-29 09:46] LABS: #Basophils 0.1 thou/uL (0.0-0.2); #Eosinphils 0.2 thou/uL (0.0-0.7); #Lymphocytes 1.6 thou/uL (1.20-3.40); #Monocytes 0.5 thou/uL (0.11-0.59); #Neutrophils 4.9 thou/uL (1.40-6.50); %Basophils 0.8 % (0.0-1.0); %Eosinophils 2.3 % (0.0-10.0); %Lymphocytes 22.6 % (21.0-51.0); %Monocytes 6.9 % (0.0-10.0); %Neutrophils 67.4 % (42.0-75.0); Hemoglobin 13.8 g/dL (14.0-18.0); Mean Corpuscular HGB CONC 35.2 g/dL (32.0-36.0); Mean Corpuscular Hemoglobin 28.7 pg (27.0-31.0); Mean Corpuscular Volume 81.4 fL (78.0-98.0); Mean Platelet Volume 6.3 fL (7.4-10.4); Platelet Count 167 thou/uL (130-400); RBC Distribution Width 12.5 % (11.5-14.5); Red Blood Cell (RBC) Count 4.83 mill/uL (4.70-6.10); White Blood Cell (WBC) Count 7.2 thou/uL (4.8-10.8)
[2017-10-29] MEDS ORDERED: Furosemide 100 MG/10 ML VIAL ONE (09:49)
[2017-10-29 09:55] LABS: ALT (SGPT) 35 U/L (8-55); AST (SGOT) 32 U/L (5-34); Albumin 3.9 g/dL (3.4-4.8); Alkaline Phosphatase 56 U/L (40-150); Anion Gap 17 mmol/L (10-20); BUN (Urea Nitrogen) 17 mg/dL (8.4-25.7); Bilirubin, Total 0.9 mg/dL (0.2-1.2); Calc. Creatinine Clearance 0 mL/min (70-130); Carbon Dioxide 19 mmol/L (23-31); Chloride 110 mmol/L (98-107); Estimated GFR-MDRD Greater than 90; Globulin 2.7 g/dL (2.4-3.5); Glucose 97 mg/dL (83-110); Potassium 4.8 mmol/L (3.5-5.1); Protein, Total 6.6 g/dL (5.8-8.1); Sodium 141 mmol/L (136-145)
[2017-10-29 09:56] LABS: CKMB 3.3 ng/mL (0-6.6); Troponin I 0.029 ng/mL (< 0.028)
[2017-10-29 09:58] LABS: Prothrombin Time 13.7 SEC (12.0-14.7)
[2017-10-29] MEDS ORDERED: methylPREDNISolone Sod Succ/PF 125 MG/2 ML VIAL ONE (10:05)
[2017-10-29 10:07] LABS: PTT 31.5 SEC (22.9-36.1)
[2017-10-29] MEDS ORDERED: Ondansetron ODT 4 MG TAB PO PRN (12:54)
[2017-10-29] MEDS ORDERED: Acetaminophen 325 MG TAB PO PRN (12:54)
[2017-10-29] MEDS ORDERED: Ondansetron HCl/PF 4 MG/2 ML Vial IVP PRN (12:54)
[2017-10-29 15:02] VITALS: BMI 24.3
--- NOTE | 2017-10-29 18:58 | RAD ---
PORTABLE CHEST: 10/29/17 Comparison is made with an 01/14/[address] [facility]. Today's exam at 0858 shows mild cardiomegaly which seems slightly larger than before. The vessels are slightly more prominent than they were previously as well. I cannot exclude some early congestive ch dena. Calcification is seen in the aortic arch. Median sternotomy sutures are present as usual. The lungs a re hyperexpanded with flattening of the diaphragm. There is a little haziness over the right hemidiap hragm medially, but I am not convinced of its significance as of yet. IMPRESSION: Suggestive of mild congestive change. POS: HOME
[2017-10-29] MEDS ORDERED: Meclizine HCl 25 MG TAB PO PRN (19:20)
[2017-10-29] MEDS ORDERED: HYDROcodone/Acetaminophen 10/325 mg Tablet PO PRN (19:20)
[2017-10-29] MEDS ORDERED: Senokot 8.6 MG TAB PO PRN (19:23)
[2017-10-29] MEDS: Apixaban 5 MG TAB PO SCH (20:59)
[2017-10-29] MEDS: Lisinopril 5 MG TAB PO SCH (20:59)
[2017-10-29] MEDS: SYSTANE EYE EA EYE SCH (21:01)
[2017-10-29] MEDS: Promethazine DM 6.25-15mg/5ml 120 ML BOT PO PRN (21:12)
--- NOTE | 2017-10-30 01:03 | HP ---
DATE OF ADMISSION: 10/29/2017 CHIEF COMPLAINT: Shortness of breath. HISTORY OF PRESENT ILLNESS: The patient is an 81-year-old white male with a history of COPD as well as congestive heart failure with chronic atrial fibrillation who reports about 3-4 days prior to pres enting to the emergency room, the patient ran out of his Lasix, usually takes 20 mg to 40 mg daily, d epending upon his symptoms including lower extremity edema and after stopping his Lasix due to ran ou t of the medication, he try to get refills and was unable to. Then became progressively more short o f breath on the morning of admission, he got up out of bed, try to walk to the bathroom, became so sh ort of breath. He could barely walk and thus presented to the emergency room. In the emergency room , patient was evaluated and found to be in with signs of congestive heart failure requiring admission to the hospital. PAST MEDICAL HISTORY: Includes, 1. COPD for greater than 30 years, patient intermittently still smokes. 2. Coronary artery disease with status post coronary artery bypass at age 49. 3. Hypertension. 4. Hyperlipidemia. 5. Atrial fibrillation. 6. Congestive heart failure. PAST SURGICAL HISTORY: Includes coronary artery bypass as above at age 49 as well as left inguinal h ernia repair. Postoperatively, patient had a chronic drainage from the postoperative site, initially had an abscess that required a wound VAC treatment. CURRENT MEDICATIONS: Isosorbide mononitrate 60 mg daily, Ventolin puff 2 puffs q.4 hours p.r.n. for shortness of breath. The patient is also on inhaled steroids twice a day as well as long-acting beta agonist twice a day, Eliquis 5 mg b.i.d., Lipitor patient stopped taking the medication, Tricor reggie y, Lasix as above 20-40 mg daily, lisinopril 2.5 mg daily, aspirin 81 mg daily, [place] 10/325 p.o. q.6 hours. p.r.n. for pain. ALLERGIES: No known drug allergies. FAMILY HISTORY: Mother at age 49 of breast cancer. Father at age 73 of congestive heart f ailure complications. SOCIAL HISTORY: The patient is for multiple years, has been previously . His is a surrogate decision maker: The patient wishes to be DNR status. He has fairly independent in acti vities of daily living. He is oxygen dependent due to his chronic COPD. The patient does report con tinued smoking of Siglo p.r.n. 1-2 a day. He reports social alcohol drinking, but no other significa nt social drug use. REVIEW OF SYSTEMS: The patient denies any headache, no real significant visual changes or sore throa t. No fevers, chills or night sweats. No nausea, vomiting or diarrhea. No recent GI changes. The patient is progressively short of breath as reported in HPI, but no significant chest pain other than the shortness of breath which is exertional character. The patient does report some cough with his increased shortness of breath. The patient denies any dysuria, hematuria or change in urinary freque ncy. No significant low back pain. The patient does report some increased lower extremity edema. H e is unsure if he has had any significant weight gain or weight loss. No rashes noted and patient re ports no significant skin changes. LABORATORY AND X-RAY FINDINGS: Comprehensive metabolic panel showed no significant abnormalities ove r his baseline. CBC was within normal limits. The patient had a chest x-ray which showed congestive changes to the lungs. PHYSICAL EXAMINATION: VITAL SIGNS: Blood pressure is 128/68, respiratory rate was 22, pulse was irregular in the 80s, temp erature 98.2, O2 saturation was 92% on 2 liters. HEENT: Atraumatic, normocephalic. Extraocular movements are intact. Pupils are equal, round, and r eactive to light and accommodation. Oropharynx was dry. NECK: Supple, no masses palpated, no bruits auscultated. CHEST: Decreased breath sounds with prolonged expiration bilaterally. HEART: Irregularly irregular rate and rhythm. ABDOMEN: Soft, nontender, nondistended, no masses were palpated. No tenderness to palpation. The l eft inguinal area had a punctate open wound with minimal drainage. EXTREMITIES: With trace edema of the lower extremities bilaterally. BACK: No CVA, no vertebral tenderness. ASSESSMENT AND PLAN: 1. Congestive heart failure exacerbation due to medication noncompliance. The patient was given 60 of Lasix IV in the emergency room, he has diuresed 4 liters. While repeat chest x-ray and comprehens julissa metabolic panel in the morning, may consider another dose of IV Lasix. Continue him on oxygen. 2. Chronic obstructive pulmonary disease exacerbation. Continue oxygen as above as well as breathin g treatments per routine. He was given a dose of Solu-Medrol, I do not think there is any significan t chronic obstructive pulmonary disease exacerbation that is mainly congestive heart failure. 3. Atrial fibrillation. The patient is on anticoagulant currently his rate is controlled. He is no t on any beta lynnette. 4. Coronary artery disease. The patient did have a borderline troponin just above the range of norm al, but no significant chest pain nor obvious EKG changes. Repeat troponin in the morning, it is nor mal. No further treatment. Again, there are no other signs of significant cardiac ischemia. We gerson l continue him on isosorbide 60 mg daily. DISPOSITION: The patient is a DNR by his request. Hopefully, he will be in the hospital for approxi mately 2-3 days depending upon how well he is diuresed.
[2017-10-30 05:41] LABS: Hemoglobin 12.7 g/dL (14.0-18.0); Mean Corpuscular HGB CONC 35.4 g/dL (32.0-36.0); Mean Corpuscular Hemoglobin 28.8 pg (27.0-31.0); Mean Corpuscular Volume 81.2 fL (78.0-98.0); Platelet Count 141 thou/uL (130-400); RBC Distribution Width 12.3 % (11.5-14.5); Red Blood Cell (RBC) Count 4.42 mill/uL (4.70-6.10); White Blood Cell (WBC) Count 10.6 thou/uL (4.8-10.8)
[2017-10-30 05:47] LABS: ALT (SGPT) 27 U/L (8-55); AST (SGOT) 18 U/L (5-34); Albumin 3.6 g/dL (3.4-4.8); Alkaline Phosphatase 49 U/L (40-150); Anion Gap 13 mmol/L (10-20); BUN (Urea Nitrogen) 19 mg/dL (8.4-25.7); Bilirubin, Total 0.5 mg/dL (0.2-1.2); Calc. Creatinine Clearance 80 mL/min (70-130); Calcium 8.9 mg/dL (7.8-10.44); Carbon Dioxide 25 mmol/L (23-31); Chloride 109 mmol/L (98-107); Estimated GFR-MDRD Greater than 90; Globulin 2.4 g/dL (2.4-3.5); Glucose 120 mg/dL (83-110); Sodium 143 mmol/L (136-145); Troponin I 0.018 ng/mL (< 0.028)
[2017-10-30 05:55] LABS: Lymphocytes 9 % (21-51); MDiff Complete? YES; Monocytes 5 % (0-10); Neutrophil 85 % (42-75); PLT Morphology Comment Appears Adequate; RBC Morphology Normal; Reactive Lymphocytes 1 % (0-10)
[2017-10-30] MEDS: Budesonide 0.5 MG/2 ML NEB NEB SCH ×2 (06:13→18:06)
[2017-10-30] MEDS ORDERED: Potassium Chloride 20 MEQ TAB PO SCH (08:00)
[2017-10-30] MEDS ORDERED: Furosemide 100 MG/10 ML VIAL SLOW IVP SCH (08:00)
[2017-10-30] MEDS: Aspirin 81 mg Enteric Coated Tablet PO SCH (08:18)
[2017-10-30] MEDS: Lisinopril 5 MG TAB PO SCH ×2 (08:20→21:37)
[2017-10-30] MEDS: Apixaban 5 MG TAB PO SCH ×2 (08:20→21:44)
[2017-10-30] MEDS: IRON FUM PO SCH (10:17)
[2017-10-30] MEDS: FOLIC PO SCH (10:17)
[2017-10-30] MEDS: PRENATAL VIT PO SCH (10:17)
[2017-10-30] MEDS: FENOFIBRATE NANOCRYSTALLIZED 48 MG PO SCH (10:17)
[2017-10-30] MEDS: SYSTANE EYE EA EYE SCH ×2 (10:18→21:46)
[2017-10-30] MEDS: PROVENTIL INHALER 6.7 G (200 INHALATIONS) INH PRN (14:28)
--- NOTE | 2017-10-30 17:46 | RAD ---
CHEST TWO VIEWS: 10/30/17 Comparison is made with the 10/29 study. There is less congestion today than yesterday. The heart is mildly enlarged but no more so than befor e. A prior CABG is noted. Some small pleural effusions are present, left more than right. There is fl attening of the diaphragm consistent with COPD. IMPRESSION: CHF improving. POS: HOME
[2017-10-30] MEDS: Promethazine DM 6.25-15mg/5ml 120 ML BOT PO PRN (21:45)
[2017-10-31] MEDS: Budesonide 0.5 MG/2 ML NEB NEB SCH ×2 (05:59→17:50)
[2017-10-31] MEDS: Aspirin 81 mg Enteric Coated Tablet PO SCH (08:59)
[2017-10-31] MEDS: Lisinopril 5 MG TAB PO SCH ×2 (09:00→20:18)
[2017-10-31] MEDS: Apixaban 5 MG TAB PO SCH ×2 (09:00→20:18)
[2017-10-31] MEDS: FENOFIBRATE NANOCRYSTALLIZED 48 MG PO SCH (09:02)
[2017-10-31] MEDS: PRENATAL VIT PO SCH (09:03)
[2017-10-31] MEDS: SYSTANE EYE EA EYE SCH ×2 (09:03→20:19)
[2017-10-31] MEDS: FOLIC PO SCH (09:03)
[2017-10-31] MEDS: IRON FUM PO SCH (09:03)
[2017-10-31] MEDS ORDERED: Furosemide 100 MG/10 ML VIAL SLOW IVP SCH (10:00)
[2017-10-31 10:01] LABS: ALT (SGPT) 29 U/L (8-55); AST (SGOT) 20 U/L (5-34); Alkaline Phosphatase 52 U/L (40-150); Anion Gap 15 mmol/L (10-20); BUN (Urea Nitrogen) 16 mg/dL (8.4-25.7); Bilirubin, Total 0.6 mg/dL (0.2-1.2); Calc. Creatinine Clearance 73 mL/min (70-130); Calcium 9.4 mg/dL (7.8-10.44); Carbon Dioxide 28 mmol/L (23-31); Chloride 104 mmol/L (98-107); Estimated GFR-MDRD Greater than 90; Globulin 2.6 g/dL (2.4-3.5); Glucose 125 mg/dL (83-110); Potassium 3.9 mmol/L (3.5-5.1); Protein, Total 6.6 g/dL (5.8-8.1); Sodium 143 mmol/L (136-145)
[2017-10-31] MEDS ORDERED: Potassium Chloride 10 MEQ TAB PO SCH (19:45)
[2017-11-01] MEDS: Budesonide 0.5 MG/2 ML NEB NEB SCH (07:23)
[2017-11-01] MEDS: Apixaban 5 MG TAB PO SCH (08:59)
[2017-11-01] MEDS ORDERED: Lisinopril 10 MG TAB PO SCH (09:00)
[2017-11-01] MEDS: Aspirin 81 mg Enteric Coated Tablet PO SCH (09:00)
[2017-11-01] MEDS: FENOFIBRATE NANOCRYSTALLIZED 48 MG PO SCH (09:03)
[2017-11-01] MEDS: PRENATAL VIT PO SCH (09:03)
[2017-11-01] MEDS: FOLIC PO SCH (09:03)
[2017-11-01] MEDS: IRON FUM PO SCH (09:03)
[2017-11-01] MEDS: SYSTANE EYE EA EYE SCH (09:03)
[2017-11-01] MEDS ORDERED: Furosemide 100 MG/10 ML VIAL SLOW IVP SCH (09:15)
[2017-11-01] MEDS ORDERED: Potassium Chloride 20 MEQ TAB PO SCH (09:15)
[2017-11-01] MEDS: Promethazine DM 6.25-15mg/5ml 120 ML BOT PO PRN (09:35)
[2017-11-01] MEDS: PROVENTIL INHALER 6.7 G (200 INHALATIONS) INH PRN (11:36)
[2017-11-01 16:58] VITALS: BP 123/61; TEMP 98.5
--- NOTE | 2017-11-04 14:20 | DIS ---
BRIEF SUMMARY OF HISTORY AND PHYSICAL: The patient is an 82-year-old white male with a history of en d-stage COPD as well as a history of coronary artery disease and atrial fibrillation with congestive heart failure who presented to the emergency room on 10/29/2017 after not taking his Lasix for severa l days. He began to have increased shortness of breath and difficulty ambulating in the emergency ro om, he was found to be in congestive heart failure and was admitted to the hospital. BRIEF SUMMARY OF HOSPITAL COURSE: The patient was admitted to the floor, placed on oxygen and given IV Lasix daily. The patient diuresed well and had significant improvement in his respiratory status to the point where he was close to his baseline, especially at rest, but continued to require oxygen, which was at his baseline as well. During his hospital course, he did continue to have some cough a nd on exam continued to have some rhonchi and expiratory wheezes. He was continued on his routine ne bulizers, but started on Levaquin at discharge for possible exacerbation of his chronic bronchitis/CO PD. DISCHARGE MEDICATIONS: The patient will continue all his medications including isosorbide mononitrat e 60 mg daily, Ventolin puffs as needed q.4 hours p.r.n. shortness of breath. He will continue his l janessa-acting beta agonist and inhaled steroid b.i.d. The patient will continue Eliquis 5 mg p.o. b.i.d ., TriCor daily, Lasix 40 mg daily. He will be started on potassium 10 mEq daily, lisinopril 2.5 mg daily, aspirin 81 mg daily, [place] 10/325 p.o. q.6h. p.r.n. pain. The patient was started on Levaquin 750 mg 1/2 tablet p.o. daily for 10 days. The patient was told to continue his oxygen continuously. He will follow up with his primary care ph ysician, Dr. Davian Gilbert within the week as well as his meat stock clerk, Dr. Burton Dunne. Ap parently, the patient has nonoperable end-stage coronary artery disease, but it would be warranted fo r him to follow up with Dr. Dunne before he tries to increase any of his physical activity. Appa rently, the patient had been on hospice in the past, but reverse decision to stay on hospice. His ov erall outlook is pretty grim to poor with his endstage COPD.
--- NOTE | 2017-11-06 13:21 | PQF ---
RENETTA CANDELARIO KIA E MD [id number] CLINICAL DOCUMENTATION CLARIFICATION FORM: POST DISCHARGE Addendum to original discharge summary date: ____ Late entry note date: __ DATE: 11/06/2017 ATTN: ANGELINA SINGH MD Please exercise your independent, professional judgment in responding to the clarification form. Clinical indicators are provided on the bottom of this form for your review Please check appropriate box(s): HEART FAILURE: A. TYPE: [x ] Systolic / HFrEF [ ] Diastolic / HFpEF [ ] Combined Systolic / Diastolic B. ACUITY [ ] Acute [ x] Acute on Chronic [ ] Chronic [ ] Other diagnosis [ ] Unable to determine In addition, please specify: Present on Admission (POA): [ x] Yes [ ] No [ ] Unable to determine For continuity of documentation, please document condition throughout progress notes and discharge summary. Thank You. CLINICAL INDICATORS - SIGNS / SYMPTOMS / LABS Congestive heart failure exacerbation due to medicatoin noncompliance. History of congestive heart failure, patient ran out of Lasix Symptoms include lower extremity edema Patient was given 60 of Lasix in the ER. Diuresed 4L.Repeat Chest x-ray, CMP. Continue oxygen RISKS: History of CAD Hypertension TREATMENTS: Patient was given 60 of lasix in the ER Diuresed 4L Repeat Chest x-ray, CMP Continue oxygen (This form is maintained as a part of the permanent medical record) 2014 [employer] All Rights Reserved Nelson [phone] MTDD
== END 2017-11-01 16:38 | disposition home or self-care (01) | DRG 292 ==
LOC: BURERS 09:06 → BURMED 11:15
PROVIDERS: ADMIT Family Medicine; ATTEND Family Medicine
DX: I11.0 Hypertensive heart disease with heart failure (principal); J44.1 Chronic obstructive pulmonary disease with (acute) exacerbation; I48.2 Chronic atrial fibrillation; Z95.1 Presence of aortocoronary bypass graft; E78.5 Hyperlipidemia, unspecified; Z66 Do not resuscitate; Z99.81 Dependence on supplemental oxygen; Z91.14 Patient's other noncompliance with medication regimen; I25.10 Atherosclerotic heart disease of native coronary artery without angina pectoris; M19.90 Unspecified osteoarthritis, unspecified site; Z87.442 Personal history of urinary calculi; N40.0 Benign prostatic hyperplasia without lower urinary tract symptoms; F17.290 Nicotine dependence, other tobacco product, uncomplicated; I50.23 Acute on chronic systolic (congestive) heart failure
CPT/HCPCS: 36415; 71045; 71046; 80053; 82553; 83880; 84443; 84484; 85025; 85610; 85730; 93005; 94640; 94664; 94760; 96361; 96374; 96375; A4216; J1940; J2930; J7620; J7626

== ENCOUNTER 2018-01-07 08:54 | Emergency (ER) | payer MEDICARE ==
[2018-01-07] MEDS ORDERED: methylPREDNISolone Sod Succ/PF 125 MG/2 ML VIAL ONE (09:06)
[2018-01-07 09:10] LABS: #Basophils 0.1 thou/uL (0.0-0.2); #Eosinphils 0.5 thou/uL (0.0-0.7); #Lymphocytes 1.5 thou/uL (1.20-3.40); #Monocytes 0.4 thou/uL (0.11-0.59); #Neutrophils 6.4 thou/uL (1.40-6.50); %Basophils 0.6 % (0.0-1.0); %Eosinophils 5.4 % (0.0-10.0); %Lymphocytes 16.9 % (21.0-51.0); %Monocytes 4.7 % (0.0-10.0); %Neutrophils 72.3 % (42.0-75.0); Mean Corpuscular HGB CONC 33.8 g/dL (32.0-36.0); Mean Corpuscular Hemoglobin 29.4 pg (27.0-31.0); Mean Corpuscular Volume 86.9 fL (78.0-98.0); Mean Platelet Volume 8.1 fL (7.4-10.4); Platelet Count 219 thou/uL (130-400); Red Blood Cell (RBC) Count 5.12 mill/uL (4.70-6.10); White Blood Cell (WBC) Count 8.9 thou/uL (4.8-10.8)
[2018-01-07 09:21] LABS: INR-International Normal Ratio 1.1; Prothrombin Time 13.9 SEC (12.0-14.7)
[2018-01-07 09:27] LABS: ALT (SGPT) 73 U/L (8-55); AST (SGOT) 91 U/L (5-34); Albumin 3.9 g/dL (3.4-4.8); Alkaline Phosphatase 84 U/L (40-150); Anion Gap 18 mmol/L (10-20); BUN (Urea Nitrogen) 24 mg/dL (8.4-25.7); Bilirubin, Total 0.9 mg/dL (0.2-1.2); CK (CPK) 88 U/L (30-200); Calc. Creatinine Clearance 0 mL/min (70-130); Calcium 9.2 mg/dL (7.8-10.44); Carbon Dioxide 24 mmol/L (23-31); Chloride 105 mmol/L (98-107); Estimated GFR-MDRD 62; Glucose 210 mg/dL (83-110); Potassium 4.5 mmol/L (3.5-5.1); Protein, Total 6.9 g/dL (5.8-8.1); Sodium 142 mmol/L (136-145)
[2018-01-07 09:30] LABS: CKMB 2.5 ng/mL (0-6.6); PTT 31.6 SEC (22.9-36.1); Troponin I 0.034 ng/mL (< 0.028)
--- NOTE | 2018-01-07 22:50 | RAD ---
PORTABLE CHEST: 01/07/18 An AP portable film at 0847 is compared with an 10/30/17 study. The cardiac size is unchanged. It is upper normal to slightly enlarged. There is no vascular congesti on, edema, or large pleural effusions. Calcification is seen in the aortic arch. There is a little extra haziness in the right lung base, more so medially. I cannot exclude a minimal infiltrate here, though a followup PA and lateral view would be useful in being certain. The left pito ng is relatively clear. The trachea is midline. IMPRESSION: 1. Slight increase in right basilar haziness. Cannot exclude minimal infiltrate. 2. Minimal cardiomegaly, unchanged. No evidence of CHF. POS: HOME
== END 2018-01-07 10:12 | disposition short-term general hospital (02) ==
LOC: BURERS 08:54
DX: I95.9 Hypotension, unspecified (principal); J44.1 Chronic obstructive pulmonary disease with (acute) exacerbation; R09.02 Hypoxemia; R79.89 Other specified abnormal findings of blood chemistry; I11.0 Hypertensive heart disease with heart failure; I50.9 Heart failure, unspecified; I48.91 Unspecified atrial fibrillation; I25.10 Atherosclerotic heart disease of native coronary artery without angina pectoris; M19.90 Unspecified osteoarthritis, unspecified site; N40.0 Benign prostatic hyperplasia without lower urinary tract symptoms; Z87.442 Personal history of urinary calculi; F17.290 Nicotine dependence, other tobacco product, uncomplicated; Z79.899 Other long term (current) drug therapy
CPT/HCPCS: 36415; 71045; 80053; 82550; 82553; 83880; 84484; 85025; 85610; 85730; 87040; 93005; 94640; 94760; 96374; 96375; J1956; J2930; J7620

== ENCOUNTER 2018-08-05 08:42 | Outpatient (CLI) | payer MEDICARE ==
[2018-08-05] MEDS ORDERED: Iopamidol 370 76% 100 ML VIAL ONE (10:03)
--- NOTE | 2018-08-05 11:36 | CT ---
CT ABDOMEN WITH AND WITHOUT CONTRAST: Date: 08/05/18 HISTORY: 82-year-old male with N28.89 renal mass. TECHNIQUE: Precontrast, nephrographic/venous phase, and excretory/pyelographic phase, scans of abdomen, from saba g bases to iliac crests. Pelvis was not included. COMPARISON: 11/20/17. FINDINGS: At the mid pole of the right kidney, there was a previously rim-enhancing moderately low density mass measuring approximately 2 cm. This lesion has not significantly changed in size, currently measuring approximately 2 x 2 x 2 cm. However, it has changed in that the central portion is no longer hypoden se. In fact, it is isodense to adjacent normal renal parenchyma on the precontrast scan (42 HU), is s lightly hyperdense relative to adjacent medulla on the nephrographic phase (148 HU), and then becomes minimally hypodense relative to adjacent renal parenchyma (although still of moderate density) on th e excretory phase, with density of 94 HU. This definite enhancement is consistent with a solid renal neoplasm. No renal calculi (tiny atherosclerotic calcifications involving proximal branches of bilateral renal arteries should not be mistaken for nephrolithiasis). No hydronephrosis. Heavy atherosclerotic calcif ication of abdominal aorta and bilateral common iliac arteries without aneurysm. Large 6.5 cm benign simple cyst of left kidney is again demonstrated. There are additional bilateral small renal cysts. Normal liver, pancreas, and spleen. Bilateral adren al nodules are stable, and have been stable for many years, consistent with benign adrenal adenomas. No retroperitoneal lymphadenopathy. No obvious major pathology of visualized portions of bowel. No co nsolidation or suspicious nodule at lung bases. IMPRESSION: 1. Right renal enhancing solid 2 cm renal mass has changed in appearance, but not significantly navarro ged in size since 11/20/17. This is evidence for renal neoplasm such as renal cell carcinoma. 2. Multiple bilateral renal cysts. 3. Bilateral benign adrenal adenomas. CODE T. POS: [facility]
[2018-08-05 11:48] LABS: Bilirubin Negative (Negative); Blood, Urine Negative (Negative); Clarity CLOUDY (Clear); Glucose, Urine (Dipstick) Negative (Negative); Leukocyte Negative (Negative); Nitrite Negative (Negative); Protein, Urine (Dipstick) Trace mg/dL (Neg-Trace); Specific Gravity, Urine 1.016 (1.002-1.036); Urobilinogen 0.2 mg/dL (0.2-1.0)
[2018-08-05 12:30] LABS: RBC/HPF 0-3 HPF (0-3); Squamous Epithelial None Seen HPF (0-3); WBC/HPF None Seen HPF (0-3)
[2018-08-05 12:31] LABS: Bacteria/HPF None Seen HPF (None Seen); Hyaline Casts/LPF 0-3 HYALINE CAST LPF (0-3 Hyaline)
== END 2018-08-05 08:43 | disposition home or self-care (01) ==
LOC: BURCT 08:42
PROVIDERS: ATTEND Urology
DX: N28.89 Other specified disorders of kidney and ureter (principal); N40.0 Benign prostatic hyperplasia without lower urinary tract symptoms; C64.1 Malignant neoplasm of right kidney, except renal pelvis; D35.01 Benign neoplasm of right adrenal gland; N28.1 Cyst of kidney, acquired
CPT/HCPCS: 74170; 81001; 87086; Q9967

== ENCOUNTER 2018-12-25 10:27 | Emergency (ER) | payer MEDICARE ==
[2018-12-25] MEDS ORDERED: Ibuprofen 800 MG TAB ONE (10:35)
[2018-12-25] MEDS ORDERED: HYDROcodone/Acetaminophen 10/325 mg Tablet ONE (10:35)
[2018-12-25 12:51] LABS: #Eosinphils 0.1 thou/uL (0.0-0.7); #Lymphocytes 0.8 thou/uL (1.20-3.40); #Monocytes 0.6 thou/uL (0.11-0.59); #Neutrophils 7.9 thou/uL (1.40-6.50); %Basophils 0.5 % (0.0-1.0); %Eosinophils 1.1 % (0.0-10.0); %Lymphocytes 8.2 % (21.0-51.0); %Neutrophils 84.3 % (42.0-75.0); Hemoglobin 12.3 g/dL (14.0-18.0); Mean Corpuscular HGB CONC 31.3 g/dL (32.0-36.0); Mean Corpuscular Hemoglobin 28.7 pg (27.0-31.0); Mean Corpuscular Volume 91.7 fL (78.0-98.0); Mean Platelet Volume 6.5 fL (7.4-10.4); Platelet Count 133 thou/uL (130-400); RBC Distribution Width 13.5 % (11.5-14.5); Red Blood Cell (RBC) Count 4.27 mill/uL (4.70-6.10); White Blood Cell (WBC) Count 9.4 thou/uL (4.8-10.8)
[2018-12-25 13:04] LABS: Anion Gap 16 mmol/L (10-20); BUN (Urea Nitrogen) 24 mg/dL (8.4-25.7); Calc. Creatinine Clearance 0 mL/min (70-130); Calcium 9.2 mg/dL (7.8-10.44); Carbon Dioxide 25 mmol/L (23-31); Chloride 105 mmol/L (98-107); Estimated GFR-MDRD 61; Glucose 108 mg/dL (83-110); Sodium 141 mmol/L (136-145)
--- NOTE | 2018-12-25 17:45 | RAD ---
LEFT HIP TWO VIEWS: 12/25/18 While a gross fracture was not indicated, the superior aspect of the femoral neck takes a slightly a ngulated turn and is not as smooth as is normal. On one of the views, there is some faint calcific de nsity in the femoral neck. This film itself does not prove a fracture, but does make one slightly craig picious. CT is recommended for evaluation. Degenerative changes are seen in the hip joint itself lexx g with joint space narrowing and osteophytes. The adjacent pubic ring appears intact. IMPRESSION: Possible femoral neck fracture. See CT to follow. POS: HOME
--- NOTE | 2018-12-25 17:51 | CT ---
CT OF THE LEFT HIP: 12/25/[address] of the left hip was done in response to abnormal findings on the plain radiographs. Axial s lices were acquired followed by coronal and sagittal reconstructions. Again noted is a definite irregularity, if not a break in the cortex of the femoral neck laterally. A very faint line appears to go across the femoral neck from this point and there is a sclerotic area that begins here and extends inferiorly a bit. The findings are strongly suggestive of a subtle impac osvaldo fracture of the neck. There are moderately severe degenerative changes in the joint itself. No ot her fractures were seen. IMPRESSION: Findings consistent with a subtle femoral neck fracture that is mildly impacted and not displaced. Wh ile the findings are fairly subtle, I feel they are real. An MRI would be confirmatory if further wor kup is felt to be needed. On the basis of these findings, however, I feel the patient should be treat ed as a fracture. Findings discussed with Dr. Bocanegra at 1210 on 12/25/18. POS: HOME
== END 2018-12-25 13:17 | disposition short-term general hospital (02) ==
LOC: BURERS 10:27
DX: S72.002A Fracture of unspecified part of neck of left femur, initial encounter for closed fracture (principal); J44.9 Chronic obstructive pulmonary disease, unspecified; I10 Essential (primary) hypertension; I48.91 Unspecified atrial fibrillation; M19.90 Unspecified osteoarthritis, unspecified site; N40.0 Benign prostatic hyperplasia without lower urinary tract symptoms; I25.10 Atherosclerotic heart disease of native coronary artery without angina pectoris; F17.290 Nicotine dependence, other tobacco product, uncomplicated; Z79.01 Long term (current) use of anticoagulants; Z79.82 Long term (current) use of aspirin; Z79.899 Other long term (current) drug therapy; Z79.51 Long term (current) use of inhaled steroids; W18.30XA Fall on same level, unspecified, initial encounter
CPT/HCPCS: 36415; 80048; 85025